=== PATIENT | male | born 1995 | race African-American/Black ===

== ENCOUNTER 2017-05-26 22:05 | Emergency (ER) | payer OTHER ==
[~2017-05-26] VITALS: Ht 175.3 cm; Wt 56.7 kg
--- NOTE | ~2017-05-26 | CR127 ---
[facility] A Service of [facility] RADIOLOGY TEXT RESULTS PATIENT: LAVON CALZADA LOCATION: SED : [birth year] UNIT #: [id number] AGE: [address]: German Sharma MD SEX: M ORDER DR: [id number] [place] [id number] E MR#: [id number] Acc #: [id number] NAME: LAVON CALZADA : 1995 SEX: M STUDY DATE/TIME: 05/26/2017 UNIT: SED ROOM: STUDY DESCRIPTION: CR Foot Complete Min 3 View Rt Attending Physician: German Sharma M.D. Ordering Physician: Hubert Hare Aprn Primary Care Physician: [facility] MEDICAL IMAGING REPORT This report is preliminary unless electronic signature is present. EXAM RIGHT foot 05/26 at 2223 hours INDICATIONS Second through fifth digit pain that started 2 days ago. No recent trauma. FINDINGS Three views of the right foot were obtained. No comparison. 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 The patient has had an osteotomy at the first proximal phalanx. 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 There is an old third metatarsal fracture. There is deformity of the second metatarsal head which may be related to prior trauma. There is also probably an old fracture or osteotomy of the first metatarsal diaphysis. No acute fracture or malalignment is seen. IMPRESSION Old post-traumatic and postsurgical changes as above. No acute findings in the foot. Dictated by... Romaine Caceres Jr., M.D. THIS IS AN ELECTRONICALLY VERIFIED REPORT Romaine Caceres Jr., M.D. at 05/27/2017 8:31 PM SHANIKA/sandra TD: 05/27/2017 11:09 JOB #: [id number] MEDICAL IMAGING REPORT [facility] A Service [facility] RADIOLOGY TEXT RESULTS PATIENT: LAVON CALZADA LOCATION: SED : [birth year] UNIT #: [id number] AGE: [address]: German Sharma MD SEX: M ORDER DR: Page 1 of 1
[~2017-05-26 22:05] MED LIST: AMOXICILLIN PO; BENADRYL25 MG PO; ELIMITE60 GM TOP; NO MEDICATIONS; PREDNISONE5 M1 DOB; PREDNISONE5 M1 PO
== END 2017-05-26 23:03 | disposition home or self-care (01) ==
LOC: SED 22:05
DX: S93.602A Unspecified sprain of left foot, initial encounter (principal); X50.0XXA Overexertion from strenuous movement or load, initial encounter
CPT/HCPCS: 73630; 99283